=== PATIENT | female | born 1990 | race Caucasian/White ===

== ENCOUNTER 2021-11-06 02:00 | Emergency (ER) | payer OTHER ==
[~2021-11-06] VITALS: Ht 160 cm; Wt 63.5 kg
--- NOTE | 2021-11-06 02:00 | NUR ---
EVANGELINA COLLIER, TAKEN TO CHAIR A
[2021-11-06 02:12] VITALS: BP 124/68
--- NOTE | 2021-11-06 03:43 | NUR ---
PATIENT [facility] [employer] DEPT. PATIENT EXAMINED BY DR. MA. PATIENT MEDICALLY CLEARED AND RELEASED IN CUSTODY IN STABLE CONDITION. ORIGINAL PRE-BOOK FORM GIVEN TO OFFICER CELINE, #[id number].
== END 2021-11-06 03:43 ==
LOC: MED 02:00
DX: F10.129 Alcohol abuse with intoxication, unspecified (principal); F12.929 Cannabis use, unspecified with intoxication, unspecified; Y90.9 Presence of alcohol in blood, level not specified
CPT/HCPCS: 99283